=== PATIENT | male | born 2000 | race Hispanic/Latino ===

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

== ENCOUNTER 2024-11-03 17:00 | Emergency (ER) | payer SELFPAY ==
[~2024-11-03] VITALS: Ht 160 cm; Wt 79.4 kg
--- NOTE | 2024-11-03 18:20 | ERN ---
ED Note History of Present Illness Stated Complaint: WOUND CHECK Chief Complaint: Wound Check Time Seen by MD: 17:03 Time Seen by Midlevel: 17:03 Dictation: The patient is a 24-year-old male with no past medical history who presents to the ER for evaluation of a dog bite wound. Patient reports he was bitten by a neighborhood dog onset two days ago. Reports home to left thigh, abdomen. Patient reports that and will control was contacted and dog was taken. Reports he cleaned his own wound at home. Per his up-to-date with Tdap. Denies any fevers or wound drainage. Allergies: Coded Allergies: No Known Allergies (Unverified Allergy, Unknown, 04/01/19) Home Meds Active Scripts Amoxicillin/Potassium Clav (Amox Tr-K Clv 875-125 mg Tab) 875 Mg-125 Mg Tablet, 1 TAB PO BID for 3 Days, #6 TAB 0 Refills Prov:MCKENZIE RODRIGUEZ [employer] 11/03/24 Past Medical History RN Note Reviewed/Agreed w/PFSH: Yes Review of System Dictation Constitutional: Negative for fever,chills, and weight loss Eyes: Negative for injury, pain,redness, and discharge ENT: Negative for injury,pain or swelling Cardiovascular: Negative for chest pain, palpitations, and edema Respiratory: Negative for shortness of breath, cough, and wheezing, Abdomen/GI: Negative for abdominal pain, nausea, vomiting, diarrhea, and constipation Back: Negative for injury and pain : Negative for injury, bleeding and discharge MS/Extremity: Negative for injury and deformity Skin: Negative for rash, and discoloration positive for Dog bite Neuro: Negative for headache, weakness, numbness, tingling, and seizure Psych: Negative for suicide ideation, homicidal ideation, and hallucinations Is Initial Vital Sign VS Vital Signs Date Time Temp Pulse Resp B/P (MAP) Pulse Ox O2 Delivery O2 Flow Rate FiO2 11/03/24 19:28 98.1 69 20 115/83 97 Room Air Physical Exam Dictation Vital Signs reviewed General Appearance: Alert, oriented x 3, no acute distress, well developed, nourished. Head and Face: non-traumatic. Eyes: PERRL, pink conjunctivas, eyelid no trauma, anterior chamber with arcus senilis. Ears: Pinnas intact and no signs of trauma or erythema ear canals clear and no discharge TM no erythema Nose: No discharge, no bleeding. Oropharynx: Mouth normal, tongue pink. pharynx clear,no erythema, tonsils no exudates, no abscesses noted, mucous membrane moist Neck: Supple, non-tender, no thyromegaly, no masses, no JVD, no bruits Breast:Deferred Chest:No tenderness, no crepitus, no paradoxical movement, no retractions Lungs:Clear, well-ventilated, symmetric, no rales, no wheezing, no rhonchi, no stridor, good breath sounds bilaterally Heart: Regular rate, regular rhythm, no murmur, no gallops Vascular: no peripheral edema, Abdomen: Soft, positive bowel sounds, nondistended, no guarding, nontender, no rebound, no masses no hepatomegaly, no splenomegaly, no Person's sign, no hernias. Rectal: Deferred Genital: Deferred Neurological: Normal speech, motor function intact, sensory function intact Musculoskeletal: Neck nontender, full range of motion, back nontender, full range of motion, Extremities: nontender, full range of motion Skin: Color pink, dry, no turgor, no rash, no lacerations, no abrasions, bruising to left about 6cm in diameter, no open wounds, soft, no erythema or drainage. small superficial abrasion to left forhead about 1cm in diameter, small superficial abrasion to left lower quadrant, scabed 1cm Lymphatic: Deferred Results (Laboratory/Radiology) Labs Reviewed?: Yes ED Course ED Course Vital Signs Date Time Temp Pulse Resp B/P (MAP) Pulse Ox O2 Delivery O2 Flow Rate FiO2 11/03/24 19:28 98.1 69 20 115/83 97 Room Air Medical Decision Making MDM The patient is a 24-year-old male with no past medical history who presents to the ER for evaluation of a dog bite wound. Patient reports he was bitten by a neighborhood dog onset two days ago. Reports home to left thigh, abdomen. Patient reports that and will control was contacted and dog was taken. Reports he cleaned his own wound at home. Per his up-to-date with Tdap. Denies any fevers or wound drainage. Patient in acute distress, wounds with no signs of infection, will be discharge and instructed to follow with animal control. Differential diagnosis: Cellulitis, abscess, contusion Need for hospitalization: Patient does not meet criteria for hospitalization. There are no social concerns with this patient. DX & DISP Disposition: Discharge Departure Impression: Primary Impression: Dog bite Additional Impression: Dog bite of left thigh Condition: Stable Scripts Amoxicillin/Potassium Clav (Amox Tr-K Clv 875-125 mg Tab) 875 Mg-125 Mg Tablet 1 TAB PO BID for 3 Days, #6 TAB 0 Refills Prov: JENNIFERMCKENZIE JORDAN 11/03/24 Additional Instructions: Please follow up with the primary doctor in 1-2 days. If symptoms worsen or urgent start about it being fevers or drainage from please return to ER. Follow up with animal control FOLLOW-UP WITH PRIMARY CARE PROVIDER IN 1 TO 2 DAYS. TAKE MEDICATIONS DIRECTED HERE IN THE EMERGENCY ROOM. OKAY TO CONTINUE HOME MEDICATIONS UNLESS OTHERWISE DISCUSSED DURING YOUR VISIT IN THE EMERGENCY ROOM TODAY. RETURN TO YOUR NEAREST EMERGENCY ROOM IF SYMPTOMS WORSEN OR IF THERE IS NO IMPROVEMENT. CALL 911 IF YOU NEED IMMEDIATE ASSISTANCE. TAKE TYLENOL OR MOTRIN [id number] NEEDED AND IF NO CONTRAINDICATIONS ARE PRESENT. INCREASE O RAL HYDRATION. A WOUND CULTURE OR URINE CULTURE WAS ORDERED HERE IN THE EMERGENCY ROOM DEPARTMENT PLEASE FOLLOW-UP WITH PRIMARY CARE PROVIDER AND ADVISE THEM TO GET REPEAT PORTS FROM OUR FACILITY. IF YOU HAD ANY MORAIMA WRAP/SPLINTS THAT WERE APPLIED HERE, PLEASE DO NOT REMOVE THEM UNTIL YOU SEE YOUR PRIMARY CARE OR SPECIALTY. Referrals: BRYON GAFFNEY (PCP) Time of Disposition: 18:34 I have reviewed the case, and I agree with, Diagnosis and Plan MCKENZIE RODRIGUEZ Nov 03, 2024 18:20
[2024-11-03] MEDS ORDERED: AMOX1TAB16 PO (18:35)
[2024-11-03 20:08] VITALS: BP 115/83; PULSE 69; RESP 20; TEMP 98.5; O2SAT 97
== END 2024-11-03 20:22 | disposition home or self-care (01) ==
LOC: EDH 17:00
DX: S71.152A Open bite, left thigh, initial encounter (principal); W54.0XXA Bitten by dog, initial encounter; Y93.89 Activity, other specified; Y92.89 Other specified places as the place of occurrence of the external cause; Y99.8 Other external cause status
CPT/HCPCS: 99283